=== PATIENT | female | born 1965 | race Caucasian/White ===

== ENCOUNTER 2017-05-23 08:21 | Emergency (ER) | payer SELFPAY ==
--- NOTE | 2017-05-23 10:37 | RAD ---
LEFT ELBOW 4 VIEWS: Date: 05/23/17 HISTORY: Fall. Injury. COMPARISON: None. FINDINGS: No fracture. No malalignment. No joint effusion. IMPRESSION: No acute abnormality. POS: OFF
--- NOTE | 2017-05-23 10:39 | RAD ---
LEFT WRIST THREE VIEWS: History: Fall. Comparison: None. Date: 05-23-17 FINDINGS: Severe degenerative at the thumb carpal metacarpal joint. No acute fracture. No malalignment. IMPRESSION: 1. No acute abnormality. 2. Large osteophyte from the carpal metacarpal joint with adjacent heterotopic ossification. POS: OFF
--- NOTE | 2017-05-23 10:39 | RAD ---
LUMBAR SPINE 3 VIEWS: Date: 05/23/17 HISTORY: Back pain. Fall with injury to back. FINDINGS: The lumbar vertebra maintain height and alignment. There is loss of disc space seen at L4-5 and L5-S1 . Degenerative end plate changes are prominent at L4-5. Degenerative osteophytes are also prominent a nteriorly at L4-5. Facet hypertrophy is noted at all levels of the lumbar spine. There is no evidence of spondylolisthesis. No evidence of compression deformity or acute fracture. IMPRESSION: There are moderate degenerative changes of the lumbar spine as described above, most prominent at L4- 5 and L5-S1 levels. POS: OFF
== END 2017-05-23 10:27 | disposition home or self-care (01) ==
LOC: ERS 08:21
DX: M25.522 Pain in left elbow (principal); M54.5 Low back pain; J44.9 Chronic obstructive pulmonary disease, unspecified; F32.9 Major depressive disorder, single episode, unspecified; F17.210 Nicotine dependence, cigarettes, uncomplicated; W19.XXXA Unspecified fall, initial encounter
CPT/HCPCS: 72100

== ENCOUNTER 2020-02-13 13:19 | Emergency (ER) | payer SELFPAY ==
--- NOTE | 2020-02-13 14:27 | RAD ---
XR Chest 1 View Portable HISTORY: Chest pain COMPARISON: 09/25/2009 FINDINGS: The heart size is normal. The lungs are well expanded without focal areas of consolidation, pneumothorax or pleural effusions. IMPRESSION: No radiographic evidence of acute cardiopulmonary process.
[2020-02-13 15:03] LABS: #Basophils 0.1 thou/uL (0.0-0.2); #Eosinphils 0.1 thou/uL (0.0-0.7); #Monocytes 0.5 thou/uL (0.11-0.59); #Neutrophils 7.3 thou/uL (1.40-6.50); %Basophils 0.6 % (0.0-1.0); %Eosinophils 0.5 % (0.0-10.0); %Lymphocytes 20.2 % (21.0-51.0); %Monocytes 5.2 % (0.0-10.0); %Neutrophils 73.4 % (42.0-75.0); Mean Corpuscular HGB CONC 33.5 g/dL (32.0-36.0); Mean Corpuscular Hemoglobin 32.5 pg (27.0-31.0); Mean Corpuscular Volume 97.3 fL (78.0-98.0); Mean Platelet Volume 8.5 fL (7.4-10.4); Platelet Count 265 thou/uL (130-400); RBC Distribution Width 11.8 % (11.5-14.5); White Blood Cell (WBC) Count 9.9 thou/uL (4.8-10.8)
[2020-02-13 15:29] LABS: ALT (SGPT) 15 U/L (8-55); AST (SGOT) 14 U/L (5-34); Albumin 4.3 g/dL (3.5-5.0); Alkaline Phosphatase 85 U/L (40-110); Anion Gap 11 mmol/L (10-20); BUN (Urea Nitrogen) 6 mg/dL (9.8-20.1); Bilirubin, Total 0.3 mg/dL (0.2-1.2); Calc. Creatinine Clearance 0 mL/min (70-130); Calcium 9.6 mg/dL (7.8-10.44); Carbon Dioxide 29 mmol/L (22-29); Chloride 102 mmol/L (98-107); Estimated GFR-MDRD 78; Globulin 2.8 g/dL (2.4-3.5); Glucose 96 mg/dL (70-105); Potassium 4.2 mmol/L (3.5-5.1); Protein, Total 7.1 g/dL (6.0-8.3); Sodium 138 mmol/L (136-145)
[2020-02-13 16:46] LABS: Bilirubin Negative (Negative); Blood, Urine Negative (Negative); Clarity Clear (Clear); Glucose, Urine (Dipstick) Normal (Negative); Ketone, Urine Negative (Negative); Leukocyte Negative Leu/uL (Negative); Nitrite Negative (Negative); Protein, Urine (Dipstick) Negative (Neg-Trace); Specific Gravity, Urine 1.005 (1.002-1.036); Urobilinogen Normal mg/dL (Less than 2)
--- NOTE | 2020-02-15 11:04 | EKG ---
Test Reason : Blood Pressure : / mmHG Vent. Rate : 077 BPM Atrial Rate : 077 BPM P-R Int : 122 ms QRS Dur : 082 ms QT Int : 382 ms P-R-T Axes : 053 -03 037 degrees QTc Int : 432 ms Normal sinus rhythm Normal ECG Confirmed by ISMAEL CARMONA DO ([id number]), features editor CINDY ACOSTA ([id number]) on 02/15/2020 11:04:48 AM Referred By: Confirmed By:ISMAEL CARMONA DO
== END 2020-02-13 17:15 | disposition home or self-care (01) ==
LOC: ERS 13:19
DX: R07.89 Other chest pain (principal); R10.9 Unspecified abdominal pain; M79.7 Fibromyalgia; J44.9 Chronic obstructive pulmonary disease, unspecified; F32.9 Major depressive disorder, single episode, unspecified; F17.210 Nicotine dependence, cigarettes, uncomplicated; Z71.6 Tobacco abuse counseling
CPT/HCPCS: 36415; 71045; 80053; 81003; 84484; 85025; 93005

== ENCOUNTER 2021-11-16 08:37 | Outpatient (CLI) | payer OTHER | END 2021-11-16 08:38 | disposition home or self-care (01) | LOC: BICCT 08:37 | PROVIDERS: ATTEND Nurse Practitioner Family | DX: Z12.31 Encounter for screening mammogram for malignant neoplasm of breast (principal); Z12.2 Encounter for screening for malignant neoplasm of respiratory organs; F17.210 Nicotine dependence, cigarettes, uncomplicated | CPT/HCPCS: 71271; 77067 ==

== ENCOUNTER 2022-01-11 09:37 | Outpatient (CLI) | payer OTHER | END 2022-01-11 09:38 | disposition home or self-care (01) | LOC: MRI 09:37 → BICMRI 09:38 | PROVIDERS: ATTEND Nurse Practitioner Family | DX: M47.22 Other spondylosis with radiculopathy, cervical region (principal) | CPT/HCPCS: 72141 ==

== ENCOUNTER 2022-06-22 09:24 | Outpatient (CLI) | payer OTHER | END 2022-06-22 09:25 | disposition home or self-care (01) | LOC: SCSMRI 09:24 | PROVIDERS: ATTEND Nurse Practitioner Family | DX: M54.16 Radiculopathy, lumbar region (principal); M48.061 Spinal stenosis, lumbar region without neurogenic claudication; M48.07 Spinal stenosis, lumbosacral region; R60.0 Localized edema | CPT/HCPCS: 72148 ==